=== PATIENT | female | born 1995 | race Caucasian/White ===

== ENCOUNTER 2019-08-20 18:51 | Emergency (ER) | payer MEDICAID, BC ==
[2019-08-20] MEDS ORDERED: ASPIRIN 81 MG CHEWABLE TABLET PO ONE (19:21)
--- NOTE | 2019-08-20 19:37 | Emergency Department Record ---
History of Present Illness - General Chief Complaint: Chest Pain Stated Complaint: CHEST,STOMACH PAIN Time Seen by Provider: 08/20/19 18:55 Source: Patient Mode of Arrival: Ambulatory Limitations: No limitations - History of Present Illness Initial Comments: pt c/o ap, cp that is sharp and has lasted 2 days. no n/v/c/d. no other symptoms MD Complaint: Chest pain Onset/Timin -: Days(s) Pain Location: Substernal Severity: Moderate Severity scale (1-10): 5 Quality: Aching, Sharp Consistency: Intermittent Improves With: Rest Worsens With: Exertion Context: Recent illness Other Symptoms: Cough Treatment Prior to Arrival Comment:: tylenol - Related Data On Oral Contraceptives: No Home Medications Medication Instructions Recorded Confirmed Last Taken Sertraline HCl [Zoloft] 25 mg PO DAILY 08/20/19 08/20/19 08/19/19 22:00 Allergies Allergy/AdvReac Type Severity Reaction Status Date / Time No Known Drug Allergies Allergy Verified 07/25/14 11:20 Travel Screening - Travel/Exposure Within Last 30 Days Have you traveled within the last 30 days?: No - Travel/Exposure Within Last Year Have you traveled outside the [place] in the last year?: No - Additonal Travel Details Have you been exposed to anyone with a communicable illness?: No - Travel Symptoms Symptom Screening: Weakness Review of Systems Reviewed: No additional complaints except as noted below Constitutional: Reports: As per HPI. Denies: Chills, Fever, Malaise, Night sweats, Weakness, Weight change Eyes: Reports: As per HPI. Denies: Eye discharge, Eye pain, Photophobia, Vision change ENT: Reports: As per HPI. Denies: Congestion, Dental pain, Ear pain, Epistaxis, Hearing loss, Throat pain Respiratory: Reports: As per HPI. Denies: Cough, Dyspnea, Hemoptysis, Stridor, Wheezes Cardiovascular: Reports: As per HPI, Chest pain. Denies: Arrhythmia, Dyspnea on exertion, Edema, Murmurs, Orthopnea, Palpitations, Paroxysmal nocturnal dyspnea, Rheumatic Fever, Syncope Endocrine: Reports: As per HPI. Denies: Fatigue, Heat or cold intolerance, Polydipsia, Polyuria Gastrointestinal: Reports: As per HPI, Abdominal pain. Denies: Constipation, Diarrhea, Hematemesis, Hematochezia, Melena, Nausea, Vomiting Genitourinary: Reports: As per HPI. Denies: Abnormal menses, Discharge, Dyspareunia, Dysuria, Frequency, Hematuria, Incontinence, Retention, Urgency Musculoskeletal: Reports: As per HPI. Denies: Arthralgia, Back pain, Gout, Joint swelling, Myalgia, Neck pain Skin: Reports: As per HPI. Denies: Bruising, Change in color, Change in hair/nails, Lesions, Pruritus, Rash Neurological: Reports: As per HPI. Denies: Abnormal gait, Confusion, Headache, Numbness, Paresthesias, Seizure, Tingling, Tremors, Vertigo, Weakness Psychiatric: Reports: As per HPI. Denies: Anxiety, Auditory hallucinations, Depression, Homicidal thoughts, Suicidal thoughts, Visual hallucinations Hematological/Lymphatic: Reports: As per HPI. Denies: Anemia, Blood Clots, Easy bleeding, Easy bruising, Swollen glands Past Medical History - SOCIAL HISTORY Smoking Status: Light tobacco smoker (<10/day) Alcohol Use: Rare Drug Use Detail:: Marijuana - RESPIRATORY Hx Respiratory Disorders: No - CARDIOVASCULAR Hx Cardio Disorders: No - NEURO Hx Neuro Disorders: No - GI Hx GI Disorders: No - Hx Genitourinary Disorders: No - ENDOCRINE Hx Endocrine Disorders: No Hx Diabetes: No Hx Thyroid Disease: No - MUSCULOSKELETAL Hx Musculoskeletal Disorders: No - PSYCH Hx Psych Problems: No - HEMATOLOGY/ONCOLOGY Hx Hematology/Oncology Disorders: No Family Medical History Any Significant Family History?: Yes Hx Heart Disease: Father Physical Exam - General General Appearance: Alert, Oriented x3, Cooperative, Mild distress - Head Head exam: Normal inspection - Eye Eye exam: Normal appearance, PERRL, EOMI Pupils: Normal accommodation - ENT ENT exam: Normal exam, Mucous membranes moist, Normal external ear exam, Normal orophraynx Ear exam: Normal external inspection. negative: External canal tenderness Nasal Exam: Normal inspection. negative: Discharge, Sinus tenderness Mouth exam: Normal external inspection, Tongue normal Teeth exam: Normal inspection. negative: Dental caries Throat exam: Normal inspection. negative: Tonsillar erythema, Tonsillar exudate - Neck Neck exam: Normal inspection, Full ROM. negative: Tenderness - Respiratory Respiratory exam: Normal lung sounds bilaterally, Chest wall tenderness. nega tive: Respiratory distress - Cardiovascular Cardiovascular Exam: Normal rhythm, Normal heart sounds, Tachycardia - GI/Abdominal GI/Abdominal exam: Soft, Normal bowel sounds, Tenderness - Rectal Rectal exam: Deferred - exam: Deferred - Extremities Extremities exam: Normal inspection, Full ROM, Normal capillary refill. negative: Tenderness - Back Back exam: Reports: Normal inspection, Full ROM. Denies: Muscle spasm, Rash noted, Tenderness - Neurological Neurological exam: Alert, CN II-XII intact, Normal gait, Oriented X3 - Psychiatric Psychiatric exam: Normal affect, Normal mood - Skin Skin exam: Dry, Intact, Normal color, Warm Course Vital Signs 08/20/19 18:57 Temperature 98.5 F Pulse Rate 132 H Respiratory 18 Rate Blood Pressure 117/80 Pulse Ox 98 - Reevaluation(s) Reevaluation #1: 08/20/19 20:33 pt feels better Medical Decision Making - Lab Data Result diagrams: 08/20/19 19:35 08/20/19 19:35 Disposition Disposition: Discharge Clinical Impression: Chest pain Qualifiers: Chest pain type: unspecified Qualified Code(s): R07.9 - Chest pain, unspecified Abdominal pain Qualifiers: Abdominal location: generalized Qualified Code(s): R10.84 - Generalized abdominal pain Disposition: Home, Self-Care Condition: (1) Good Instructions: Chest Pain (ED), Abdominal Pain (ED) Additional Instructions: follow up with family doctor. return sooner if worse. sukumar neumann. have halter monitor and echo Forms: Patient Portal Access Quality - Quality Measures Quality Measures: N/A - Blood Pressure Screening Does Patient Have Any of the Following: No Blood Pressure Classification: Pre-Hypertensive BP Reading Systolic Measurement: 117 Diastolic Measurement: 80 Screening for High Blood Pressure: < Pre-Hypertensive BP, F/U Documented > [G8950] Pre-Hypertensive Follow-up Interventions: Follow-up with rescreen every year.
[2019-08-20 19:44] LABS: ABSOLUTE NEUTROPHIL COUNT 2.31; BASO % 0.4 % (0-6); EOS % 1.3 % (0-6); GRAN % 43.9 % (47-80); HEMATOCRIT 42.1 % (35.0-47.0); HEMOGLOBIN 14.2 gm/dl (11.6-16.0); LYMPH % 48.9 % (16-45); MEAN CELL VOLUME 92.1 fl (81-97); MEAN CORPUSCULAR HEMOGLOBIN 31.1 pg (27-33); MEAN CORPUSCULAR HGB CONC 33.7 g/dl (32-36); MEAN PLATELET VOLUME 9.6 fl (7.4-10.4); MONO % 5.5 % (0-9); PLATELET COUNT 250 K/uL (130-400); RED BLOOD COUNT 4.57 M/uL (3.80-5.40); RED CELL DISTRIBUTION WIDTH 12.3 % (11.5-14.5); WHITE BLOOD COUNT W/O DIFF 5.3 K/uL (4.2-12.2)
[2019-08-20 19:47] LABS: URINE APPEARANCE CLEAR; URINE BILIRUBIN NEGATIVE (NEGATIVE); URINE BLOOD NEGATIVE (NEGATIVE); URINE COLOR YELLOW; URINE GLUCOSE (UA) NEGATIVE (NEGATIVE); URINE KETONE NEGATIVE (NEGATIVE); URINE LEUKOCYTE ESTERASE NEGATIVE (NEGATIVE); URINE NITRITE NEGATIVE (NEGATIVE); URINE PROTEIN NEGATIVE (NEGATIVE); URINE UROBILINOGEN 0.2 E.U./dL (0.20 - 1.00)
[2019-08-20 19:55] LABS: BLOOD UREA NITROGEN 14 mg/dL (6-20); CREATININE 0.6 mg/dL (0.5-0.9); EST GLOMERULAR FILTRATION RATE > 60 mL/min
[2019-08-20 19:56] LABS: TOTAL PROTEIN 8.4 g/dL (6.6-8.7)
[2019-08-20 19:58] LABS: GLUCOSE,RANDOM 99 mg/dL (74-109)
[2019-08-20 19:58] LABS: AMPHETAMINE SCREEN URINE NOT DETECTED; BARBITURATE SCREEN URINE NOT DETECTED; BENZODIAZEPINE SCREEN URINE NOT DETECTED; COCAINE SCREEN URINE NOT DETECTED; METHADONE SCREEN URINE NOT DETECTED; METHAMPHETAMINE SCREEN NOT DETECTED; OPIATE SCREEN URINE NOT DETECTED; OXYCODONE SCREEN URINE NOT DETECTED; PHENCYCLIDINE SCREEN URINE NOT DETECTED; PROPOXYPHENE SCREEN URINE NOT DETECTED; THC SCREEN URINE DETECTED; TRICYCLIC ANTIDEPRESSANT SCRN NOT DETECTED
[2019-08-20 20:00] LABS: ALT/SGPT 20 U/L (<33)
[2019-08-20] MEDS ORDERED: KETOROLAC 30 MG/ML VIAL IVP ONE (20:00)
[2019-08-20 20:01] LABS: ALB/GLOB RATIO 1.8 (1.1-1.8); ALBUMIN 5.4 g/dL (4.0-5.0); ALKALINE PHOSPHATASE 79 U/L (35-104); AST/SGOT 27 U/L (10.0-35.0); CREATINE PHOSPHOKINASE 108 U/L (26-192)
[2019-08-20 20:03] LABS: CKMB 1.6 ng/mL (<3.77)
--- NOTE | 2019-08-20 20:20 | RADIOLOGY REPORT ---
EXAMINATION: Two View Chest Radiographs EXAM DATE: 08/20/2019 8:16 PM TECHNIQUE: Frontal and lateral views INDICATION: cp COMPARISON: None ENCOUNTER: Not applicable FINDINGS: The heart, mediastinum, and pulmonary vasculature are normal. No lung consolidation or pleural effu sions are present. IMPRESSION: No acute cardiopulmonary disease is present. Dictated by: Vidal Luciano MD on 08/20/2019 8:18 PM. .
== END 2019-08-20 20:45 | disposition home or self-care (01) ==
LOC: ER 18:51
DX: R07.2 Precordial pain (principal); F17.210 Nicotine dependence, cigarettes, uncomplicated; R10.84 Generalized abdominal pain
CPT/HCPCS: 71046; 80053; 80305; 81003; 81025; 82550; 82553; 84484; 85025; 85379; 85651; 93005; 93010; 96374; 99284; J1885

== ENCOUNTER 2019-09-23 16:39 | Emergency (ER) | payer MEDICAID, BC ==
--- NOTE | 2019-09-23 17:13 | Emergency Department Record ---
History of Present Illness - General Chief complaint: Female Urogenital Problem Stated complaint: UTI? Time Seen by Provider: 09/23/19 16:59 Source: Patient Mode of Arrival: Ambulatory Limitations: No limitations - History of Present Illness Initial comments: The patient is here due to a 2 day hx of burning with urination. She denies any AP, back pain, fever or vomiting. The symptoms all started right after she had intercourse for the first time 2 days ago. She also has been having irregular periods since going off the Dep and may be starting one now. She denies any vaginal bleeding. MD Complaint: Dysuria Onset/Timin -: Days(s) Severity: Mild Severity scale (1-10): 1 Quality: Burning Consistency: Constant Improves with: None Worsens with: Urination Associated Symptoms: Dysuria - Related Data Sexually active: Yes Previous Rx's Medication Instructions Recorded Phenazopyridine HCl [Pyridium] 100 mg PO TID #6 tablet 09/23/19 Allergies Allergy/AdvReac Type Severity Reaction Status Date / Time No Known Drug Allergies Allergy Verified 07/25/14 11:20 Travel Screening - Travel/Exposure Within Last 30 Days Have you traveled within the last 30 days?: No Review of Systems Constitutional: Denies: Chills, Fever Eyes: Denies: Eye discharge ENT: Denies: Congestion Respiratory: Denies: Cough, Dyspnea Past Medical History - SOCIAL HISTORY Smoking Status: Light tobacco smoker (<10/day) - RESPIRATORY Hx Respiratory Disorders: No - CARDIOVASCULAR Hx Cardio Disorders: No - NEURO Hx Neuro Disorders: No - GI Hx GI Disorders: No - Hx Genitourinary Disorders: No - ENDOCRINE Hx Endocrine Disorders: No Hx Diabetes: No Hx Thyroid Disease: No - MUSCULOSKELETAL Hx Musculoskeletal Disorders: No - PSYCH Hx Psych Problems: No - HEMATOLOGY/ONCOLOGY Hx Hematology/Oncology Disorders: No Family Medical History Any Significant Family History?: Yes Hx Heart Disease: Father Physical Exam - General General Appearance: Alert, Cooperative, No acute distress - Head Head exam: Atraumatic, Normocephalic, Normal inspection - Eye Eye exam: Normal appearance - Neck Neck exam: Normal inspection, Full ROM. negative: Tenderness - Respiratory Respiratory exam: Normal lung sounds bilaterally. negative: Respiratory distress - Cardiovascular Cardiovascular Exam: Regular rate, Normal rhythm, Normal heart sounds - GI/Abdominal GI/Abdominal exam: Soft, Normal bowel sounds, Other (Neg CVAT.). negative: Rebound, Rigid, Tenderness - Extremities Extremities exam: Normal inspection, Full ROM, Normal capillary refill. negative: Tenderness Course Vital Signs 09/23/19 16:42 Temperature 97.7 F Pulse Rate 103 H Respiratory 18 Rate Blood Pressure 127/85 Pulse Ox 99 - Reevaluation(s) Reevaluation #1: I did discuss the UA with the patient that does not appear to have any signs of infection. She does have some RBC's there but may be starting her menses. I did offer to perform a pelvic exam on the patient but since she has one scheduled in 6 days she is declining that plan. I then did discuss the need to place her on Pyridium for 2 days and if she is not completely better in 3 days she is to return to the ER for recheck. 09/23/19 17:46 Medical Decision Making - Data Complexity MDM Data: Labs Ordered and/or Reviewed (US: Neg for WBC's or bacteria. Significant RBC's) Disposition Disposition: Discharge Clinical Impression: Dysuria Disposition: Home, Self-Care Condition: (2) Stable Instructions: Dysuria (ED) Additional Instructions: Please drink plenty of fluids and take the Pyridium. Please see your doctor for the pelvic exam in 6 days. Return to the ER in 3 days if not 100% improved or sooner for any worsening symptoms. Prescriptions: Phenazopyridine HCl [Pyridium] 100 mg PO TID #6 tablet Forms: Patient Portal Access Time of Disposition: 17:49 Quality - Quality Measures Quality Measures: N/A - Blood Pressure Screening View Details: Yes Does Patient Have Any of the Following: No Blood Pressure Classification: Pre-Hypertensive BP Reading Systolic Measurement: 127 Diastolic Measurement: 85 Screening for High Blood Pressure: < Pre-Hypertensive BP, F/U Documented > [G8950] Pre-Hypertensive Follow-up Interventions: Referral to alternative/primary care provider.
[2019-09-23 17:19] LABS: URINE APPEARANCE SL CLOUDY; URINE BILIRUBIN NEGATIVE (NEGATIVE); URINE BLOOD LARGE (NEGATIVE); URINE COLOR YELLOW; URINE GLUCOSE (UA) NEGATIVE (NEGATIVE); URINE KETONE NEGATIVE (NEGATIVE); URINE NITRITE NEGATIVE (NEGATIVE); URINE PROTEIN NEGATIVE (NEGATIVE); URINE UROBILINOGEN 0.2 E.U./dL (0.20 - 1.00)
[2019-09-23 17:27] LABS: URINE LEUKOCYTE ESTERASE TRACE (NEGATIVE)
[2019-09-23 17:28] LABS: HCG,QUALITATIVE URINE NEGATIVE (NEGATIVE); URINE AMORPHOUS SEDIMENT 4+; URINE BACTERIA NONE SEEN; URINE RBC 36 - 50 (NONE SEEN); URINE WBC 0 - 2 (0-2/hpf)
== END 2019-09-23 17:59 | disposition home or self-care (01) ==
LOC: ER 16:39
DX: R30.0 Dysuria (principal); F17.210 Nicotine dependence, cigarettes, uncomplicated
CPT/HCPCS: 81001; 81025; 99283